=== PATIENT | male | born 1965 ===

== ENCOUNTER 2024-01-12 05:31 | Day surgery (SDC) | payer OTHER ==
[2024-01-06 09:18] LABS: PH,URINE 5.5 (5.0-8.0); URINE APPEARANCE Clear; URINE BILIRRUBIN Negative (NEGATIVE); URINE BLOOD Negative; URINE COLOR Yellow; URINE GLUCOSE Negative (NEGATIVE); URINE LEUKOCYTE Negative; URINE NITRATE Negative; URINE PROTEIN Negative (NEGATIVE); URINE UROBILINOGEN 0.2 E.U./dl
[2024-01-06 09:22] LABS: URINE EPITHELIAL CELLS 4.3 uL (0.0-38.8); URINE WBC 4.4 uL (0.0-23.2)
[2024-01-06 09:24] LABS: HEMATOCRIT 41.3 % (39.0-48.0); HEMOGLOBIN 14.2 g/dL (13-16.00); MEAN CELL VOLUME 97.4 fL (80.0-100.00); MEAN CORPUSCULAR HEMOGLOBIN 33.6 pg (27.00-32.0); MEAN CORPUSCULAR HGB CONC 34.5 g/dl (32.0-36.0); PLATELET COUNT 190 K/uL (150-450); RED BLOOD COUNT 4.24 M/uL (4.00-6.00); RED CELL DISTRIBUTION WIDTH 12.1 % (11.5-14.5)
[2024-01-06 09:45] LABS: INR 1.05; PARTIAL THROMBOPLASTIN TIME 29.6 SECONDS (22.0-34.0)
[2024-01-06 09:50] LABS: ALBUMIN 4.2 gm/dL (3.4-5.0); BILIRUBIN TOTAL 0.66 mg/dL (0.3-1.2); CALCIUM 9.4 mg/dL (8.5-10.1); CREATININE SERUM 0.92 mg/dL (0.70-1.30); GFR 83.92; GLOBULINA 3.2 G/DL (2.4-3.5); POTASSIUM 4.27 mEq/L (3.5-5.1); TOTAL PROTEIN 7.4 gm/dL (6.4-8.2)
[2024-01-12] MEDS ORDERED: CEFAZOLIN SODIUM 1,000 MG VIAL ONE (06:59)
[2024-01-12] MEDS ORDERED: BUPIVACAINE HCL/PF 0.5% 30ML ML ONE (07:12)
[2024-01-12] MEDS ORDERED: LIDOCAINE HCL/EPINEPHRINE 10MG/ML 1% 50ML IJ ONE (07:12)
[2024-01-12] MEDS ORDERED: CEFAZOLIN SODIUM 1,000 MG VIAL IV ONE (08:15)
[2024-01-13] MEDS ORDERED: BUPIVACAINE HCL/PF 0.5% 30ML ML IJ ONE (15:00)
[2024-01-13] MEDS ORDERED: LIDOCAINE HCL/EPINEPHRINE 10MG/ML 1% 50ML IJ ONE (15:00)
== END 2024-01-12 10:40 | disposition home or self-care (01) ==
LOC: CIR.AMB 05:31
PROVIDERS: ATTEND Surgery
DX: K43.6 Other and unspecified ventral hernia with obstruction, without gangrene (principal); Z20.822 Contact with and (suspected) exposure to COVID-19